=== PATIENT | male | born 1945 | race Caucasian/White ===

== ENCOUNTER 2020-03-24 08:17 | Observation (INO) | payer MEDICARE, BC ==
[~2020-03-24] VITALS: Ht 180.3 cm; Wt 98.2 kg
[2020-03-24] VITALS (12 sets, daily range): BP systolic 107–153; BP diastolic 59–779; PULSE 58–91; TEMP 97.6–99.8
[2020-03-24] MEDS ORDERED: PROTONIX 40MG T40 MG PO (09:54)
[2020-03-24] MEDS ORDERED: TENORMIN 5050 MG/TAB PO (09:54)
[2020-03-24] MEDS ORDERED: HYTRIN10 M1 PO (09:55)
[2020-03-24] MEDS ORDERED: PROSCAR 5MG5 MG PO ×2 (09:55→09:56)
[2020-03-24] MEDS ORDERED: PRINIVIL20 MG PO (09:56)
[2020-03-24] MEDS ORDERED: ASPIRIN E.C. 8181 MG PO (09:56)
[2020-03-24] MEDS ORDERED: [UNRECOGNIZED DRUG - OTHER] PO (09:57)
[2020-03-24] MEDS ORDERED: CLARITIN 1010 MG/TAB PO (09:57)
[2020-03-24] MEDS ORDERED: GLUCOS SUL PO (09:57)
[2020-03-24] MEDS ORDERED: NATURE'S BLEND600 M2 PO (09:58)
--- NOTE | 2020-03-24 12:42 | NUR ---
PT TO ROOM 324 PER BED WITH REPORT FROM MARSHALL ADAM @ 5959. PT IS A/O X3 LUNGS CLEAR, BOWEL SOUNDS PRESENT. PEDAL PULSES PALPABLE. SCDS PLACED BILATERALLY. CBI RUNNING.
--- NOTE | 2020-03-24 19:55 | NUR ---
Pt. sitting up in bed at this time. Pt. is A&OX3, assessment complete. Three way Alvarado catheter to CBI, urine is pink and clear at this time. Pt. denies pain or other needs, call light within reach.
[2020-03-25 02:37] VITALS: BP 119/59; PULSE 87; TEMP 99.4
[2020-03-25 07:21] VITALS: BP 147/73; PULSE 78; TEMP 98.1
--- NOTE | 2020-03-25 09:13 | NUR ---
Initial visit; Patient thanked Bun Machine Operator for looking in on him and offering God's blessings.
--- NOTE | 2020-03-25 09:16 | NUR ---
PRIMED AND PULLED NICHOLS PER ORDERS. PT TOLERATED WELL. PROGRESSING THROUGH 6 CUP. PT DENIES PAIN OR NEEDS AT THIS TIME. EATING AND DRINKING NO N/V.
[2020-03-25 12:08] VITALS: BP 117/77; PULSE 97; TEMP 98.2
--- NOTE | 2020-03-25 13:03 | NUR ---
DISCHARGE INSTRUCTIONS REVIEWED PT TAKEN OUT BY WHEEL CHAIR.
== END 2020-03-25 12:00 | disposition home or self-care (01) ==
LOC: SDCO 08:17 → SURG 10:08
PROVIDERS: ADMIT Urology
DX: N40.1 Benign prostatic hyperplasia with lower urinary tract symptoms (principal); R35.0 Frequency of micturition; R39.15 Urgency of urination; R35.1 Nocturia; K21.9 Gastro-esophageal reflux disease without esophagitis; I10 Essential (primary) hypertension; Z79.82 Long term (current) use of aspirin; Z85.3 Personal history of malignant neoplasm of breast; Z87.891 Personal history of nicotine dependence
CPT/HCPCS: G0378; G0379; J0690; J2250; J2270; J2704; J3010; J7120